=== PATIENT | female | born 1985 | race Caucasian/White ===

== ENCOUNTER 2020-07-25 20:47 | Emergency (ER) | payer OTHER ==
--- OUTSIDE RECORDS SUMMARY | 2020-07-25 21:01 | XMS ---
:1985 Author Organization [facility] Care Team Providers Name Role Phone Christine Garcia Unavailable [email or web address] Jose, Pushpinder Unavailable Garcia, Pushpinder Unavailable Garcia, Pushpinder Unavailable Garcia, Pushpinder Unavailable Garcia, Pushpinder Unavailable Garcia, Pushpinder Unavailable Garcia, Pushpinder Unavailable [email or web address] Re-disclosure Warning The records that you are about to access may contain information from federally- assisted alcohol or drug abuse programs. If such information is present, then the following federally mandated warning applies: This information has been disclosed to you from records protected by federal confidentiality rules (42 CFR part 2). The federal rules prohibit you from making any further disclosure of this information unless further disclosure is expressly permitted by the written consent of the person to whom it pertains or as otherwise permitted by 42 CFR part 2. A general authorization for the release of medical or other information is NOT sufficient for this purpose. The Federal rules restrict any use of the information to criminally investigate or prosecute any alcohol or drug abuse patient.The records that you are about to access may contain highly sensitive health information, the redisclosure of which is protected by Article 27-F of the [place] State Public Health law. If you continue you may haveaccess to information: Regarding HIV / AIDS; Provided by facilities licensed or operated by the [facility] Office of Mental Health; or Provided by the [facility] Office for People With Developmental Disabilities. If such information is present, then the following [facility] mandated warning applies: This information has been disclosed to you from confidential records which are protected by state law. State law prohibits you from making any further disclosure of this information without the specific written consent of the person to whom it pertains, or as otherwise permitted by law. Any unauthorized further disclosure in violation of state law may result in a fine or penitentiary sentence or both. A general authorization for the release of medical or other information is NOT sufficient authorization for further disclosure. Encounters Encounter Providers Location Date Indications Data Source(s ) Inpatient Attender: [facility] 04/08/2015 [facility] Christine Garcia 03:00:00 PM ([facility]) Medications Medication Brand Start Product Dose Route Administrative Pharmacy [facility] Indications Reaction Description Data Name Date Form Instructions Instructions Source(s) Remeron Mirtaz 06/03/ complet Remeron 15 [facility] (mirtazapin apine 2020 ed mg tablet (R egency e) 15 mg 15 MG 10:26: Extended tablet Oral 52 PM Care Tablet EDT Center) [[place]] risperidone Risper 05/14/ complet risper idone [facility] 2 mg tablet idone 2020 ed 2 mg tablet (Regency 2 MG 09:00: Extended Oral 00 AM Care Tablet EDT Center) Zithromax [id number] Zithroma x [facility] (azithromyc 76557 2020 ed 250 mg (Rege ncy in) 250 mg 05:14: tablet Exten ded tablet 09 AM Care EDT Center) risperidone Risper 01/03/ complet risper idone [facility] 1 mg/mL idone 2020 ed 1 mg/mL oral (Re gency oral 1 10:21: solution Extended solution MG/ML 29 AM Care Oral EDT Center) Soluti on docusate Docusa 12/12/ complet docusate [facility] sodium 50 te 2020 ed sodium 50 (Rege ncy mg/5 mL Sodium 06:01: mg/5 mL oral Extended oral liquid 10 59 AM liquid Care MG/ML EST Center) Oral Suspen jn baclofen 5 [id number] 01/29/ complet baclofe n 5 [facility] mg tablet 16350 2019 ed mg tablet (Reg ency 10:26: Extended 47 PM Care EST Center) baclofen 5 710370 complet baclofe n 5 [facility] mg tablet 07816 2019 ed mg tablet (Reg ency 10:26: Extended 47 PM Care EST Center) zinc oxide Zinc complet zinc oxid e [facility] 20 % Oxide 2019 ed 20 % topical (Regen cy topical 0.2 05:07: ointment Extend ed ointment MG/MG 56 AM Care Topica EST Center) l Ointme nt zinc oxide Zinc complet zinc oxid e [facility] 20 % Oxide 2019 ed 20 % topical (Regen cy topical 0.2 05:07: ointment Extend ed ointment MG/MG 56 AM Care Topica EST Center) l Ointme nt Risperdal Risper complet Risperda l [facility] (risperidon idone 2019 ed 0.25 mg (Reg ency e) 0.25 mg 0.25 10:45: tablet Exten ded tablet MG 36 PM Care Oral EST Center) Tablet [Rispe rdal] risperidone Risper complet risper idone [facility] 2 mg tablet idone 2019 ed 2 mg tablet (Regency 2 MG 10:44: Extended Oral 34 PM Care Tablet EST Center) gabapentin gabape complet gabapen tin [facility] 100 mg ntin 2018 ed 100 mg (Regency capsule 100 MG 06:48: capsule Exten ded Oral 30 AM Care Capsul EDT Center) e gabapentin gabape gabapen tin [facility] 100 mg ntin 2019 ed 100 mg (Regency capsule 100 MG 06:48: capsule Exten ded Oral 30 AM Care Capsul EDT Center) e gabapentin gabape complet gabapen tin [facility] 100 mg ntin 2019 ed 100 mg (Regency capsule 100 MG 06:48: capsule Exten ded Oral 30 AM Care Capsul EDT Center) e Risperdal Risper complet Risperda l [facility] (risperidon idone 2019 ed 0.25 mg (Reg ency e) 0.25 mg 0.25 09:44: tablet Exten ded tablet MG 59 AM Care Oral EDT Center) Tablet [Rispe rdal] risperidone Risper risper idone [facility] 2 mg tablet idone 2019 ed 2 mg tablet (Regency 2 MG 09:41: Extended Oral 15 [facility] Insurance Providers Payer name Policy type Policy ID Covered Covered republican's Policy P harrison / Coverage republican ID relationship to [place] [facility] type [place] MEDICAID [id number] SP [id number] [place] [id number] HEALTH CARE HMO/POS/EPO Medicare Medicare [id number] Self [id number] Part B Part B Medicaid Medicaid [id number] Self [id number] United Other [id number] Self [id number] Health Care Medicare 2 [id number] Self [id number] Part B Medicaid 3 [id number] Self [id number] [place] [id number] [facility] [id number] Health Care Problems, Conditions, and Diagnoses Code Display Name Description Problem Type Effective Data Dates Source(s) I20.9 Angina pectoris, Angina pectoris, Diagnosis 07/25/2020 [facility] unspecified unspecified 12:00:00 AM ([facility]) F33.9 Major depressive Major depressive Diagnosis 06/04/2020 [facility] disorder, recurrent, disorder, recurrent, 12:00 :00 AM ([facility] unspecified unspecified [facility]) R63.4 Abnormal weight loss Abnormal weight loss Diagnosis 04/22 [facility] 12:00:00 AM ([facility]) U07.1 COVID-19 COVID-19 Diagnosis 02/18/2020 [facility] 12:00:00 AM ([facility]) R50.9 Fever, unspecified Fever, unspecified Diagnosis 0 [facility] 12:00:00 AM ([facility]) G44.83 Primary cough Primary cough Diagnosis 01/29/2020 [facility] headache headache 12:00:00 AM ([facility]) M62.81 Muscle weakness Muscle weakness Diagnosis 11/06/2019 [facility] (generalized) (generalized) 12:00:00 AM ([facility]) L08.89 Other specified Oth local infections Diagnosis 11/04/2019 [facility] local infections of of the skin and 12:00:00 AM ([facility] the skin and subcutaneous tissue EST Ext ended subcutaneous tissue Care Center) R23.8 Other skin changes Other skin changes Diagnosis 0 [facility] 12:00:00 AM ([facility] [place]) W18.30XS Fall on same level, Fall on same level, Diagnosis 020 [facility] unspecified, sequela unspecified, sequela 12:00 :00 AM ([facility]) J11.89 Influenza due to Influenza due to Diagnosis 09/27/2019 [facility] unidentified unidentified 12:00:00 AM ([facility] influenza virus with influenza virus w EST Extended other manifestations oth manifest Ca re Center) 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 ID Date Data Source [id number] 02/20/2020 12:00:00 PM EDT [facility] Name Value Range Interpretation Description Data Sup porting Code Source(s) Document(s ) SARS CoV-2 [facility] Interpretation This lab was ordered by [employer] [facility] and reported by [employer]. ID Date Data Source [id number] 02/19/2020 12:00:00 PM EDT [facility] Name Value Range Interpretation Description Data Sup porting Code Source(s) Document(s ) SARS CoV-2 [facility] Interpretation This lab was ordered by [employer] and reported by [employer]. Procedure
[2020-07-25 21:15] VITALS: TEMP 98.3; BMI 16.6
--- NOTE | 2020-07-25 21:55 | PDOC ---
Documentation entered by Dayami Banegas SCRIBE, acting as scribe for Keiko Pickens MD. Keiko Pickens MD: This documentation has been prepared by the Bassam martinez Xhesika, SCRIBE, under my direction and personally reviewed by me in its entirety. I confirm that the documentation accurately reflects all work, treatment, procedures, and medical decision making performed by me. 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 from [facility] with substernal chest pain x2days. Pt describes her CP as intermittent, "achy," felt like a bruise, non-radiating, associated with SOB and nausea. Pt states when she sits up she endorsed upper abdominal pain and nausea. Pt denies experiencing this pain before. Pt states she took Motrin with relief of symptoms. Pt states she took Motrin this morning and at 5PM. Pt states her CP has since resolved. Pt denies any recent illness. No trauma. Denies fever, chills, palpitation, dizziness, weakness, V, D, bladder and bowel problems, leg swelling, No sick contacts or travel. No new changes in medications. Allergies: PCN, Heparin Past Medical History: See HPI Social history: Lives with family. No tobacco, ETOH or drug use. Meds: as documented in EMR PMD: Christine Garcia GENERAL/CONSTITUTIONAL: No fever or chills. No weakness. no sweats. HEAD, EYES, EARS, NOSE AND THROAT: No change in vision or hearing. No congestion. No headache or dizziness CARDIOVASCULAR: +chest pain. No palpitations, syncope or edema. RESPIRATORY: +SOB, No cough GASTROINTESTINAL: +upper abdominal pain. + nausea. No vomiting. No diarrhea or constipation.. GENITOURINARY: No hematuria, dysuria, frequency, urgency or other changes. MUSCULOSKELETAL: No joint or muscle swelling or pain. No decreased range of motion. No neck or back pain. SKIN: No rash or changes in skin color or lesions. No wounds. NEUROLOGIC: alert and oriented appropriately No headache, +dizziness, No loss of consciousness, or change in strength/sensation. No gait instability. HEMATOLOGIC/LYMPHATIC: No anemia, easy bruising/bleeding, or history of blood clots. ALLERGIC/IMMUNOLOGIC: No allergies PSYCH: no anxiety/depression All other systems reviewed and negative, or as documented in HPI. Physical exam General: Well appearing, awake and alert, NAD. HEENT: NCAT, PERRL, EOMI, clear conjunctiva, anicteric, moist mucous membranes, clear oropharynx, no oral lesions.. Neck: neck supple, FROM Resp: CTAB, normal and even respirations, no respiratory distress CVS: RRR, no murmurs, 2+ peripheral pulses throughout, no peripheral edema Chest: no chest wall tenderness Abdomen: soft, NTND, no rebound or guarding. No CVAT. Back: nontender, normal inspection and ROM] MSK: no edema, OTTO x4, ROM intact. No clubbing or cyanosis. normal bulk and tone. Extremities: no calf tenderness. Neuro: alert, oriented appropriately; speech clear. +Chronic RUE contracted, 4/5 strength. + chronic RLE contracted, 4/5 strength Skin: warm and well perfused, cap refill <2 sec, normal color 07/25/20 21:52 07/25/20 23:25 Past History - Medical History Allergies/Adverse Reactions: Allergies Allergy/AdvReac Type Severity Reaction Status Date / Time heparin Allergy Verified 07/25/20 21:12 Penicillins Allergy Verified 07/25/20 21:12 Home Medications: Ambulatory Orders Baclofen 10 mg PO TID 08/01/15 levETIRAcetam [Keppra -] 500 mg PO BID 08/01/15 CVA: Yes COPD: No Seizures: Yes - Reproductive History Is Patient Now?: No - Psycho-Social/Smoking History Smoking History: Never smoked - Substance Abuse Hx (Audit-C & DAST Scrn) How often the patient has a drink containing alcohol: Never Score: In Men: 4 or > Positive; In Women: 3 or > Positive: 0 Screen Result (Pos requires Nsg. Audit-10AR): Negative In the last yr the pt used illegal drug/Rx for NonMed reason: No Score: Yes response is considered Positive: 0 Screen Result (Positive result requires Nsg. DAST-10): Negative *Physical Exam - Vital Signs Last Vital Signs Temp Pulse Resp BP Pulse Ox 98.3 F 81 18 101/70 100 07/25/20 21:11 07/25/20 23:09 07/25/20 23:09 07/25/20 23:09 07/25/20 21:58 Heart Score/ECG Review - History History: Slightly suspicious - Electrocardiogram EKG: Normal - Age Age: </= 45 - Risk Factors Based on the list above the patient has:: No risk factors known - Troponin Troponin: </= normal limit - Score Heart Score - Total: 0 #1 ECG reviewed & interpreted by me at: 21:20 General ECG Interpretation: Sinus Rhythm, Normal Rate, Normal Intervals 07/25/20 21:52 EKG normal sinus rhythm 86 bpm, no interval abnormalities, narrow QRS, ST and T wave segments and morphology normal. ED Treatment Course - LABORATORY CBC & Chemistry Diagram: 07/25/20 21:30 07/25/20 21:30 - ADDITIONAL ORDERS Additional order review: Laboratory Results 07/25/20 07/25/20 07/25/20 21:30 21:30 21:30 PT with INR 12.00 INR 1.02 PTT (Actin FS) 29.8 D-Dimer < 215 Sodium 137 Potassium 4.4 Chloride 101 Carbon Dioxide 32 Anion Gap 4 L BUN 9.4 Creatinine 0.6 Est GFR (CKD-EPI)AfAm 135.91 Est GFR (CKD-EPI)NonAf 117.26 Random Glucose 85 Calcium 9.4 Magnesium 2.1 Total Bilirubin 0.3 AST 17 ALT 25 Alkaline Phosphatase 88 Troponin I < 0.02 Total Protein 7.0 Albumin 4.0 07/25/20 21:30 RBC 3.81 MCV 95.4 MCHC 33.6 RDW 13.1 MPV 8.0 Neutrophils % 43.3 Lymphocytes % 41.6 H Monocytes % 11.1 H Eosinophils % 2.1 Basophils % 1.9 - RADIOLOGY Radiology Studies Ordered: Category Date Time Status CHEST X-RAY PORTABLE* [RAD] Stat Radiology 07/25/20 22:11 Taken Medical Decision Making - Medical Decision Making 07/25/20 21:53 Vital Signs Temp Pulse Resp BP Pulse Ox 98.3 F 105 H 18 92/69 100 07/25/20 21:11 07/25/20 21:11 07/25/20 21:11 07/25/20 21:11 07/25/20 21:11 DDx chest pain: ACS, coronary vasospasm, NSTEMI, arrhythmia, unstable angina, PE, dissection, PUD, esophageal spasm, GERD, gastritis, costochondritis, pneumonia, pleurisy, pericarditis/myocarditis. dehydration, electrolyte/metabolic derangements. Interpreted by ED Physician: CXR (2 view): no acute abnormality: no infiltrates, bones appear intact and structures normal alignment, cardiac silhouette within normal limits. no free air under diaphragm, no pneumothorax. EKG normal sinus rhythm 86 bpm, no interval abnormalities, narrow QRS, ST and T wave segments and morphology normal. Chest pain HEART score zero which denotes Low risk and probability for ACS, less than 1.7% risk for MACE at 4-6 wks cannot perc out, given initial tachy now resolved, HR 80-95 on monitor. HD appropriate, soft bp but pt is thin. recheck VS, improved, and HD appropriate does not appear septic or toxic. 07/25/20 21:54 dimer is negative, reassuring, unlikely/low risk for PE> trop is neg, x1 is sufficient given 2 days of cp. unlikely cardiac remainder of labs and lytes are wnl. reassuring no abdominal tenderness no cp or sob acutely currently cxr is clear without ptx, effusion, edema. normal mediastinum and cardiac silhouette No evidence of ACS, pericarditis, myocarditis, pulmonary embolism, pneumothorax, pneumonia, Zoster, or esophageal perforation. Historically not abrupt in onset, tearing or ripping, pulses symmetric, no evidence of aortic dissection. 07/25/20 23:05 Pt to be discharged in stable condition back to [facility]. Patient made aware of clinical impression, treatment recommendations and disposition plan, return precautions discussed (including but not limited to new or persistent/worsening symptoms, pain, fevers, or signs of infection, chest pain, respiratory distress, inability to tolerate oral intake, dehydration, syncope, or neurologic changes). Follow up with PMD as recommended, follow up information provided, take medications as instructed for duration of time. continue with supportive care, avoid triggers and precipitants. All questions answered to patient's satisfaction and expressed understanding and comfort with this. At the time of discharge, the patient is alert, clinically improved, tolerating po and verbalizes understanding of instructions, satisfied with the care received and felt comfortable with the plan. Patient does not suffer from an acute life- threatening medical condition at this time and is safe for outpatient follow- up. 07/25/20 23:07 Discharge - Discharge Information Problems reviewed: Yes Clinical Impression/Diagnosis: Chest pain Qualifiers: Chest pain type: unspecified Qualified Code(s): R07.9 - Chest pain, unspecified Condition: Improved Disposition: CARE HOME FACILITY - Admission No - Follow up/Referral Referrals: Christine Garcia MD [Primary Care Provider] - - Patient Discharge Instructions Patient Printed Discharge Instructions: DI for Chest Pain Additional Instructions: 1) Please follow-up with your primary care doctor in the next 1-2 days. Please call tomorrow for for any urgent issues. 2) You were given a copy of the tests performed today. Please bring the results with you and review them with your primary care doctor. Your laboratory / imaging results were normal 3) If you have any worsening of symptoms or any other concerns please return to the ED immediately. Return if worsening symptoms including fevers, headache, vomiting, visual or hearing disturbances, abdominal pain, chest pain, shortness of breath, syncope, dehydration, inability to take things by mouth/vomiting, altered mental status, or worsening concerning symptoms. 4) Please continue taking your home medications as directed. Stay well hydrated and rest adequately. Make an appointment. If you cannot follow-up with your primary care doctor please return to the ED - Post Discharge Activity Vital Signs - Vital Signs Pulse Rate: 81 Respiratory Rate: 18 Blood Pressure: 101/70 BP Location: Left Arm Blood Pressure position: Sitting
[2020-07-25 21:57] LABS: BASO % 1.9 % (0-2.0); EOS % 2.1 % (0-4.5); HEMATOCRIT 36.4 % (32.4-45.2); HEMOGLOBIN 12.2 GM/dL (10.7-15.3); LYMPH % 41.6 % (8-40); MCH 32.1 pg (25.7-33.7); MCHC 33.6 g/dl (32.0-36.0); MEAN CELL VOLUME 95.4 fl (80-96); MONO % 11.1 % (3.8-10.2); NEUT % 43.3 % (42.8-82.8); PLATELET COUNT 263 K/MM3 (134-434); RBC 3.81 M/mm3 (3.60-5.2); RDW 13.1 % (11.6-15.6); WHITE BLOOD COUNT 6.8 K/mm3 (4.0-10.0)
[2020-07-25 22:07] LABS: INR 1.02 (0.83-1.09)
[2020-07-25 22:10] LABS: ACTIVATED PTT 29.8 SECONDS (25.2-36.5)
[2020-07-25 22:31] LABS: ALK PHOS 88 U/L (45-117); BLOOD UREA NITROGEN 9.4 mg/dL (7-18); CALCIUM 9.4 mg/dL (8.5-10.1); CHLORIDE 101 mmol/L (98-107); CO2 32 mmol/L (21-32); CREATININE 0.6 mg/dL (0.55-1.3); GLUCOSE,RANDOM 85 mg/dL (74-106); MAGNESIUM 2.1 mg/dL (1.8-2.4); POTASSIUM 4.4 mmol/L (3.5-5.1); SGOT/AST 17 U/L (15-37)
[2020-07-25 22:58] LABS: ANION GAP 4 MMOL/L (8-16); BILIRUBIN,TOTAL 0.3 mg/dL (0.2-1); SGPT/ALT 25 U/L (13-61); SODIUM 137 mmol/L (136-145)
[2020-07-25 23:09] VITALS: BP 101/70; PULSE 81
--- NOTE | 2020-07-27 07:01 | EKG ---
Test Reason : Blood Pressure : / mmHG Vent. Rate : 086 BPM Atrial Rate : 086 BPM P-R Int : 184 ms QRS Dur : 104 ms QT Int : 376 ms P-R-T Axes : 068 063 054 degrees QTc Int : 449 ms NORMAL SINUS RHYTHM RSR' OR QR PATTERN IN V1 SUGGESTS RIGHT VENTRICULAR CONDUCTION DELAY BORDERLINE ECG NO PREVIOUS ECGS AVAILABLE CLINICAL CORRELATION IS RECOMMENDED Confirmed by GONZALEZ GODOY, KAMALA ([id number]) on 07/27/2020 7:00:56 AM Referred By: Confirmed By:KAMALA ROTH MD
== END 2020-07-26 03:27 ==
LOC: JER 20:47
DX: R07.9 Chest pain, unspecified (principal)
CPT/HCPCS: 36415; 71045-TC-FY; 80053; 83735; 84484; 85025; 85379; 85610; 85730; 93005; 93010; 99285-25